=== PATIENT | female | born 1980 | race Caucasian/White ===

== ENCOUNTER 2020-11-11 21:55 | Emergency (ER) | payer OTHER, SELFPAY ==
[2020-11-11 21:55] VITALS: BP 154/103; PULSE 85; RESP 16; TEMP 36.6; O2SAT 99; BMI 25.7
[2020-11-11] MEDS: 0.9% Normal Saline 1,000 ML 999 ML IV (22:20)
--- NOTE | 2020-11-11 22:29 | ED.VIS.GEN ---
History of Present Illness Chief Complaint: Nausea/Vomiting/Diarrhea Informant: Patient Onset: Days - couple Context: Gradual Onset Timing: Continuous Quality: Watery diarrhea Current Severity: Moderate Maximum Severity: Severe Worsened by: Eating Relieved by: Nothing Associated Symptoms: Malaise, lightheaded on occasion, feels dehydrated. Poor appetite. Narrative: Patient denies any known fevers, nausea, vomiting. She gets some diffuse abdominal cramping prior to getting diarrhea, then goes away. The diarrhea is watery nonbloody nonmelanotic. 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 She is had a febrile syndrome in the last year that she thought was Covid but tested negative for it, her significant other had the same and he also tested negative. She states she did not get that sick. She does not think she has Covid now does not want tested. No recent antibiotics or travel out of the area. No suspicious food ingestions. No recent hospitalizations or surgeries. No history of C. difficile in the past. Past Medical History - Allergies and Home Meds Allergies/Adverse Reactions: Allergies oxycodone [Oxycodone] Allergy (Verified 11/11/20 23:43) Vomiting Penicillins [PCN] Allergy (Verified 11/11/20 23:43) Rash Primary Care Physician: Care Physician,No Primary [Primary Care Provider] - Past Medical History: None Lives: Alone Smoking Status: Never smoker Review of Systems General: Reports: Malaise. Denies: Chills, Fever, Sweats Eyes: Denies: Visual changes - bilaterally, Diplopia ENT: Denies: Rhinorrhea, Sore throat Cardiovascular: Denies: Chest pain, Palpitations Respiratory: Denies: Dyspnea, Cough, Dyspnea on exertion Gastrointestinal: Reports: Abdominal pain, Vomiting, Diarrhea. Denies: Nausea, Melena, Hematochezia Genitourinary: Denies: Dysuria, Hematuria, Frequency Musculoskeletal: Denies: Back pain, Swelling, Extremity Pain Skin: Denies: Rash, Wounds Neurological: Denies: Headache, Weakness, Numbness Physical Exam Vital Signs/Narrative: Vital Signs Temp Pulse Resp BP Pulse Ox 11/11/20 21:55 98 F 85 16 154/103 H 99 Inital Vital Signs reviewed: Yes General: Well nourished, Well developed, No Acute Distress - Well-appearing, conversive in full sentences Head: Normocephalic, Atraumatic Eyes: Perrl, EOMI ENT: Moist mucous membranes - Partially, No rhinorrhea Neck: Supple, Nontender Cardiovascular: Regular rate, Regular rhythm, No murmurs. Negative for: Tachycardia Respiratory: No distress, CTA bilaterally, Chest nontender Abdomen: Soft, Nontender, Nondistended, Normal bowel sounds, No masses Back: Nontender, Normal Inspection Extremities: Nontender, No edema Skin: Normal color, No rash, No Trauma Neurological: Alert, Oriented x3, Cranial nerves II-XII grossly intact, Normal Strength, Normal Sensation, Normal Gait Psychological: Normal affect, Normal Mood Diagnostic/Tx/Re-eval Laboratory Tests 11/11/20 Range/Units 22:20 Sodium 138 (136-145) mmol/L Potassium 3.6 (3.5-5.1) mmol/L Chloride 104 (98-107) mmol/L Carbon Dioxide 24.0 (21.0-32.0) mmol/L Anion Gap 10 (5-15) BUN 13 (7-18) mg/dL Creatinine 0.88 (0.55-1.02) mg/dL Estim Creat Clear Calc 77.23 ml/min Est GFR (MDRD) Af Amer 92 (>60) mL/min Est GFR (MDRD) Non-Af 76 (>60) mL/min BUN/Creatinine Ratio 14.8 (10-20) RATIO Glucose 80 (74-106) mg/dL Calcium 9.4 (8.5-10.1) mg/dL - Medical Decision Making Patient really did not want a Covid test, which I do think is unlikely, with just diarrhea, and she mainly wants IV fluids since she knows she is not drinking enough and feeling dehydrated. She urinated, she did not pee very much and it was very strong and darkly colored. She states that is how it has been. At this time I think it is reasonable to just run the electrolytes which were fine, and renal function also normal, in addition to giving her the IV fluids, the urine appears to be concentrated and not bloody or with bilirubin, etc. She does feel better after IV fluids, she already has antidiarrheals that she is taking which were only helping a little, and she is comfortable with supportive care for right now, we discussed reasons to come back and she is comfortable with that plan. ED Disposition - Plan for ED Patient: Disposition: Home or Assisted Living Diagnosis: Acute diarrhea, Mild dehydration Instructions: ED Diarrhea, Unknown Cause Referrals: Doctor,Your [STAFF PHYSICIAN] - 3-5 Days if not improving (or return to ER if worse/additional symptoms)
[2020-11-11 22:48] LABS: Anion Gap 10 (5-15); BUN 13 mg/dL (7-18); BUN/Creat Ratio 14.8 RATIO (10-20); Calcium,Total 9.4 mg/dL (8.5-10.1); Chloride 104 mmol/L (98-107); Creatinine, Serum 0.88 mg/dL (0.55-1.02); EST Glomerular Filtration Rate 76 mL/min (>60); Est Glom Filt Rate - Afr Amer 92 mL/min (>60); Estimated Creatinine Clearance 77.23 ml/min; Glucose 80 mg/dL (74-106); Potassium 3.6 mmol/L (3.5-5.1); Sodium Level 138 mmol/L (136-145)
[2020-11-12 01:04] VITALS: PULSE 98; RESP 16; O2SAT 97
== END 2020-11-12 01:05 | disposition home or self-care (01) ==
PROVIDERS: Emergency Provider Emergency Medicine
DX: E86.0 Dehydration (principal); R19.7 Diarrhea, unspecified
CPT/HCPCS: 80048; 96360; 99283; J7030

== ENCOUNTER → 2023-10-16 | Outpatient (CLI) | payer OTHER, SELFPAY | END | disposition home or self-care (01) | LOC: LABSPEC 16:00 | PROVIDERS: Referring Provider Otolaryngology Otolaryngology/Facial Plastic Surgery; Visit Provider Otolaryngology Otolaryngology/Facial Plastic Surgery | DX: J32.8 Other chronic sinusitis (principal) | CPT/HCPCS: 87070; 87205 ==